=== PATIENT | female | born 1930 | race Caucasian/White ===

== ENCOUNTER 2018-09-17 11:51 | Inpatient (IN) | payer OTHER ==
[~2018-09-17] VITALS: Ht 162.6 cm; Wt 51.7 kg
[2018-09-17] VITALS (30 sets, daily range): BP systolic 80–175; BP diastolic 33–63
[~2018-09-17 11:51] MED LIST: APAP650; NORCO 5-325 TA1 EACH PO; PAXIL10 MG
[2018-09-17 12:23] LABS: ABSOLUTE BASOPHILS 0.1 thou/uL (0.0-0.2); ABSOLUTE LYMPHOCYTES 0.7 thou/uL (0.8-5.3); ABSOLUTE MONOCYTES 0.4 thou/uL (0.0-1.2); ABSOLUTE NEUTROPHILS 6.4 thou/uL (1.6-8.1); EOSINOPHILS 0.1 %; HEMATOCRIT 29.1 % (37.0-47.0); HEMOGLOBIN 9.4 gm/dL (12.0-15.0); LYMPHOCYTES 8.8 %; MCH 31.7 pg (26.0-34.0); MCHC 32.5 g/dL (28.0-37.0); MCV 97.7 fL (80.0-100.0); MONOCYTES 5.6 %; MPV 8.3 fl. (7.2-11.1); NUCLEATED RBCS 0 /100WBC; PLATELET COUNT* 272 thou/uL (150-400); POLYS 84.5 %; RBC 2.97 mil/uL (4.20-5.00); RDW-CV 14.8 % (10.5-14.5); WBC 7.5 thou/uL (4.0-11.0)
[2018-09-17 12:31] LABS: ANION GAP 7 mmol/L (7-16); BUN 25 mg/dL (7-18); CALCIUM 8.9 mg/dL (8.5-10.1); CHLORIDE 107 mmol/L (98-107); CO2 29 mmol/L (21-32); CREATININE 1.8 mg/dL (0.6-1.3); GLUCOSE 155 mg/dL (70-99); POTASSIUM 4.3 mmol/L (3.5-5.1); SODIUM 143 mmol/L (136-145)
[2018-09-17 12:41] LABS: ALBUMIN 2.6 g/dL (3.4-5.0); ALKALINE PHOSPHATASE 101 U/L (46-116); LIPASE 76 U/L (73-393); SGOT 17 U/L (15-37); SGPT 15 U/L (30-65); TOTAL BILIRUBIN 0.3 mg/dL (<0.1-1.0); TOTAL PROTEIN 6.1 g/dL (6.4-8.2); TROPONIN-I LEVEL <0.06 ng/mL (<0.06)
[2018-09-17 12:56] LABS: URINE BILIRUBIN NEGATIVE (Negative); URINE BLOOD NEGATIVE (Negative); URINE CLARITY CLEAR; URINE COLOR YELLOW; URINE GLUCOSE-RANDOM NEGATIVE (Negative); URINE KETONES NEGATIVE (Negative); URINE NITRITE-REFLEX NEGATIVE (Negative); URINE PROTEIN TRACE (Negative); URINE UROBILINOGEN 0.2 E.U./dl (0.2-1.0)
[2018-09-17] MEDS ORDERED: BENADRYL25 MG PO (12:56)
[2018-09-17] MEDS ORDERED: LOPERAMIDE 2 MG2 M1 PO (12:57)
[2018-09-17] MEDS ORDERED: CENTRUM SILVER1 EAC4 PO (12:57)
[2018-09-17] MEDS ORDERED: VITAMIN B-12500 MCG PO (12:57)
[2018-09-17] MEDS ORDERED: WELLBUTRIN 75 M75 M1 PO (12:57)
[2018-09-17 12:58] LABS: URINE LEUKOCYTES-REFLEX 3+ (Negative)
[2018-09-17] MEDS ORDERED: ZANAFLEX2 MG PO (12:58)
[2018-09-17] MEDS ORDERED: XANAX 0.5 MG0.5 MG (12:58)
[2018-09-17] MEDS ORDERED: NORVASC2.5 MG PO (12:58)
[2018-09-17] MEDS ORDERED: LIDOCAINE PAIN1 EACH TP (12:59)
[2018-09-17] MEDS ORDERED: APAP650 (13:00)
[2018-09-17] MEDS ORDERED: BIOFREEZE118 ML TP (13:00)
[2018-09-17] MEDS ORDERED: TRAMADOL 50 MG50 MG PO (13:01)
[2018-09-17] MEDS ORDERED: IRON325 PO (13:01)
[2018-09-17] MEDS ORDERED: MIRALAX17 GM PO (13:01)
[2018-09-17] MEDS ORDERED: CELEBREX 200 M200 M1 PO (13:02)
[2018-09-17] MEDS ORDERED: NEURONTIN 300M300 M2 PO (13:02)
[2018-09-17] MEDS ORDERED: VITAMIN B-6100 MG PO (13:02)
[2018-09-17] MEDS ORDERED: DURAGESIC1 EACH TD (13:02)
[2018-09-17] MEDS ORDERED: CLARITIN10 MG PO (13:03)
[2018-09-17] MEDS ORDERED: MUCINEX600 MG PO (13:03)
[2018-09-17] MEDS ORDERED: ACCUNEB SO1.25 MG/1 (13:03)
[2018-09-17 13:17] LABS: SQUAMOUS 4-10 Moderate /LPF (0-3)
[2018-09-17 13:18] LABS: URINE WBC-REFLEX >25 Many /HPF (0-5)
[2018-09-17 13:19] LABS: URINE RBC None Seen /HPF (0-2)
[2018-09-17 13:20] LABS: CASTS None Seen /LPF (None Seen); CRYSTALS None Seen /LPF (None Seen); MUCUS None Seen strn/LPF (None Seen)
[2018-09-17 15:36] LABS: BE -3.3 mmol/L (-2 to +3)
[2018-09-17 15:40] LABS: PO2 172.7 mmHg (75.0-100.0); pH 7.274 (7.340-7.450)
[2018-09-18] VITALS (65 sets, daily range): BP systolic 104–178; BP diastolic 30–80
[2018-09-18 05:17] LABS: HEMATOCRIT 25.5 % (37.0-47.0); HEMOGLOBIN 8.7 gm/dL (12.0-15.0); MCH 33.1 pg (26.0-34.0); MCV 97.4 fL (80.0-100.0); MPV 8.5 fl. (7.2-11.1); NUCLEATED RBCS 0 /100WBC; PLATELET COUNT* 209 thou/uL (150-400); RBC 2.62 mil/uL (4.20-5.00); RDW-CV 14.5 % (10.5-14.5); WBC 5.8 thou/uL (4.0-11.0)
[2018-09-18 05:30] LABS: BE -2.9 mmol/L (-2 to +3); PCO2 38.2 mmHg (35.0-45.0); PO2 81.7 mmHg (75.0-100.0); pH 7.377 (7.340-7.450)
[2018-09-18 05:56] LABS: ALBUMIN 2.6 g/dL (3.4-5.0); CALCIUM 8.6 mg/dL (8.5-10.1); CREATININE 1.9 mg/dL (0.6-1.3); MAGNESIUM 1.8 mg/dL (1.8-2.4); PHOSPHORUS* 5.4 mg/dL (2.5-4.9); POTASSIUM 4.7 mmol/L (3.5-5.1); TOTAL BILIRUBIN 0.3 mg/dL (<0.1-1.0)
[2018-09-18 07:43] LABS: ABSOLUTE LYMPHOCYTES 0.3 thou/uL (0.8-5.3); ABSOLUTE MONOCYTES 0.1 thou/uL (0.0-1.2); ABSOLUTE NEUTROPHILS 5.5 thou/uL (1.6-8.1)
[2018-09-18 07:44] LABS: BURR CELLS Occasional; OVALOCYTES Occasional; PLATELET ESTIMATE ADEQUATE; POIKILOCYTOSIS Occasional
[2018-09-18 07:45] LABS: MICROCYTES Occasional
[2018-09-18 07:46] LABS: ANISOCYTOSIS 1+
[2018-09-19] VITALS: BP 127/35
[2018-09-19 04:00] VITALS: BP 136/60
[2018-09-19 05:13] LABS: ABSOLUTE LYMPHOCYTES 0.7 thou/uL (0.8-5.3); ABSOLUTE MONOCYTES 0.5 thou/uL (0.0-1.2); ABSOLUTE NEUTROPHILS 6.7 thou/uL (1.6-8.1); BASOPHILS 0.3 %; HEMATOCRIT 24.2 % (37.0-47.0); HEMOGLOBIN 8.1 gm/dL (12.0-15.0); LYMPHOCYTES 8.4 %; MCH 32.8 pg (26.0-34.0); MCHC 33.7 g/dL (28.0-37.0); MCV 97.2 fL (80.0-100.0); MONOCYTES 6.5 %; NUCLEATED RBCS 0 /100WBC; PLATELET COUNT* 190 thou/uL (150-400); POLYS 84.8 %; RBC 2.49 mil/uL (4.20-5.00); RDW-CV 14.6 % (10.5-14.5); WBC 7.8 thou/uL (4.0-11.0)
[2018-09-19 05:25] LABS: CALCIUM 8.3 mg/dL (8.5-10.1); CREATININE 2.8 mg/dL (0.6-1.3)
[2018-09-19 07:30] VITALS: BP 152/46
--- NOTE | 2018-09-19 09:13 | CON ---
[address] [address] CONSULTATION Name: JACKY PRESTON Room: [address] IN M.R.#: [id number] Admission: 09/17/18 Attend Phys: Susan Daugherty MD Discharge: Date of : 34 Report #: [id number] THIS REPORT FOR: //name// CC: [place] Susan Daugherty DATE OF SERVICE: 09/18/2018 REQUESTING PHYSICIAN: SUSAN DAUGHERTY MD REASON FOR CONSULTATION: Pneumonia, respiratory failure. DISCUSSION: The patient is a nonsmoking 88-year-old woman who was brought to the Emergency Department from [facility] where she lives. Apparently, she has not been doing very well over the last couple of weeks. Had a syncopal episode or near syncopal episode. She was not responsive, was brought in via EMS. She was somewhat hypotensive. She was in the ED, she was more responsive. She is not very talkative. Apparently, she has been pretty much in a wheelchair over the last several weeks. However, was bit more active prior to that with limited information I have. She is on chronic pain medication due to severe osteoarthritis. We evaluated her in the Emergency Department, was noted to have an infiltrate seen in her left base. UA was consistent with a urinary tract infection as well. She briefly required some pressor support and she is off that. Initially was on a nonrebreather mask, has been tapered down, she is currently on 4 liters and has been afebrile. She is not a very good historian. The history is taken from the chart. Currently, family is not at the bedside. She does have a history of severe osteoarthritis. On some chronic pain medications for that. She denies any history of cancer or heart disease. Has had a prior appendectomy. Operative repair of a wrist fracture. She also notes that she had "exploratory surgery" in her abdomen many years ago. SOCIAL HISTORY: Apparently resides at [facility]. Nonsmoker. May have been a smoker in the past. FAMILY HISTORY: Unable to obtain from the patient. Not pertinent given her advanced age. REVIEW OF SYSTEMS: Questionable reliability. She does complain of pain, but cannot specify any specific areas. Notes it is "all over." Acknowledges some nausea. She denies vomiting. Does note, she is mildly short [place] [id number] CONSULTATION Name: JACKY PRESTON Room: [address]#: [id number] Admission: 09/17/18 Attend Phys: Susan Daugherty MD Discharge: Date of : 34 Report #: [id number] PHYSICAL EXAMINATION: GENERAL: The patient is seen in her room in the Intensive Care Unit. She is a frail elderly woman. Seem somewhat hard of hearing. Voice is quite soft and times difficult to understand. She is favoring keeping her head tilted over to the right. She looks quite thin. Has some muscle wasting. HEENT: Sclerae are nonicteric. Mucous membranes are little dry. She has O2 running via nasal cannula. She does have a left IJ catheter in place. HEART: Regular with a grade 2/6 systolic murmur. I do not hear an S3. LUNGS: Reveal perhaps a few faint crackles heard, primarily on the left side. No wheezing. ABDOMEN: Fairly soft. She does have a healed midline surgical scar noted. Denies tenderness to palpation. EXTREMITIES: Thin. No edema. Has muscle wasting. SKIN: Turgor is fair. LABORATORY AND X-RAY FINDINGS: Suboptimal chest film given some of her positioning. May have some infiltrates in the bases, particularly on the left side. There is some prominence of pulmonary vasculature. Central line in place. Arterial blood gases done yesterday, she had a pH of 7.27, a pCO2 of 53, pO2 of 173, bicarbonate of 24 on a nonrebreather mask. This morning, pH of 7.38, pCO2 of 38, pO2 of 82, bicarbonate of 22 with a saturation 94% on 4 liters of oxygen. On her chemistry, her bicarbonate this morning is 27, potassium 4.7, BUN 33, creatinine of 1.9, albumin 2.6 and total protein 6.0. Calcium is 8.6. ProBNP yesterday was just over 1800. White blood cell count this morning 5800, hemoglobin 8.7, hematocrit 25.5 and platelets 209,000. MRSA screen is pending. Prealbumin 18.5. UA showed greater than 25 white cells and 10 to 30 bacteria. Blood and urine cultures are pending. There are no reports available at this time. CT head was done as well. 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 Findings worrisome for malignant process. IMPRESSION: 1. Acute respiratory failure, improved today. Improved O2 needs now down to 4 liters from 100% nonrebreather. 2. Probable pneumonia, may be healthcare-associated or aspiration pneumonia. Given her generalized weakness and body habitus, she does appear that she would be extremely high risk for aspiration. 3. Possible urinary tract infection. 4. Abnormal CT head. May have an occult malignancy. 5. Anemia. 6. History of dementia. 7. Renal insufficiency. It is not clear what her baseline creatinine is. 8. Overall prognosis certainly appears guarded. [facility] [address] [place] [address] CONSULTATION Name: JACKY PRESTON Room: [address] IN [facility].#: [id number] Admission: 09/17/18 Attend Phys: Susan Daugherty MD Discharge: Date of : 34 Report #: [id number] RECOMMENDATIONS: 1. Continue antibiotics, pending culture results. 2. Okay with me to transfer out of Intensive Care Unit. 3. Agree with swallow evaluation. 4. We will defer additional workup in regards to the abnormal CT head to primary service and family. It is not clear what the ultimate goals may be as far as her care and how aggressive to be concerned. <ELECTRONICALLY SIGNED> By: Silas Sanchez MD 09/19/18 0913 0816 [id number] Lin MD /nt
[2018-09-19 09:15] VITALS: BP 113/50
[2018-09-19] MEDS ORDERED: LORAZEPAM 22 MG/1 ML IV (13:00)
[2018-09-19] MEDS ORDERED: MORPHINE 110 MG/1 ML IV (13:11)
--- NOTE | 2018-09-19 14:32 | EKG ---
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[employer]: [place] : 1930 Requested By: Noé Jauregui Order Number: [id number] MD: Chriss Posey Measurements Intervals [place] Rate: 76 P: 3 IL: 169 QRS: -28 QRSD: 105 T: 29 QT: 419 QTc: 472 Interpretive Statements Sinus rhythm Probable left atrial enlargement Borderline left axis deviation Consider anterior infarct Borderline ST elevation, lateral leads Compared to ECG 09/05/2008 13:03:17 Myocardial infarct finding now present ST (T wave) deviation now present Electronically Signed On 09-19-2018 14:32:27 CDT by Chriss Posey [email or web address] <ELECTRONICALLY SIGNED> By: Chriss Posey MD, [facility] 09/19/18 1432 1204 1204 Chriss Posey MD, [facility] /EPI
--- NOTE | 2018-09-19 14:48 | EKG ---
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 : 1930 Requested By: Noé Jauregui Order Number: [id number] MD: Chriss Posey Measurements Intervals [place] Rate: 63 P: 8 MD: 171 QRS: -23 QRSD: 107 T: 26 QT: 462 QTc: 474 Interpretive Statements Sinus rhythm Consider left atrial enlargement Incomplete left bundle branch block Consider anterior infarct ST elevation, consider inferior injury Compared to ECG 09/05/2008 13:03:17 Left bundle-branch block now present Myocardial infarct finding now present ST (T wave) deviation now present Electronically Signed On 09-19-2018 14:48:12 CDT by Chriss Posey [email or web address] <ELECTRONICALLY SIGNED> By: Chriss Posey MD, [facility] 09/19/18 1448 1217 1217 Chriss Posey MD, [facility] /EPI
[2018-09-19 15:10] VITALS: BP 139/50
[2018-09-19 20:00] VITALS: BP 150/53
[2018-09-20] VITALS: BP 125/47
[2018-09-20 04:00] VITALS: BP 130/50
[2018-09-20 08:26] VITALS: BP 149/39
[2018-09-20 11:23] VITALS: BP 149/39
[2018-09-20 11:39] VITALS: BP 123/49
== END 2018-09-20 14:15 | disposition hospice, inpatient (51) | DRG 871 ==
LOC: M.ERS 11:51 → M.2W 13:55 → M.TBA-ER 13:55 → M.ICU 13:55 → M.2W 09-18 17:05
PROVIDERS: Emergency Medicine Emergency Medical Services; ADMIT Family Medicine
PROC: 02HV33Z Insertion of Infusion Device into Superior Vena Cava, Percutaneous Approach (ICD-10-PCS; principal; 2018-09-17)
DX: A41.9 Sepsis, unspecified organism (principal); R65.21 Severe sepsis with septic shock; J18.9 Pneumonia, unspecified organism; J96.00 Acute respiratory failure, unspecified whether with hypoxia or hypercapnia; N17.9 Acute kidney failure, unspecified; C71.9 Malignant neoplasm of brain, unspecified; M19.90 Unspecified osteoarthritis, unspecified site; G89.29 Other chronic pain; F41.9 Anxiety disorder, unspecified; F03.90 Unspecified dementia, unspecified severity, without behavioral disturbance, psychotic disturbance, mood disturbance, and anxiety; Z79.891 Long term (current) use of opiate analgesic; Z90.49 Acquired absence of other specified parts of digestive tract; Z79.1 Long term (current) use of non-steroidal anti-inflammatories (NSAID); Z88.8 Allergy status to other drugs, medicaments and biological substances; Z88.0 Allergy status to penicillin; Z79.899 Other long term (current) drug therapy